=== PATIENT | female | born 1940 | race Caucasian/White ===

== ENCOUNTER 2017-12-16 11:00 | Inpatient (IN) | payer OTHER ==
[2017-12-16] MEDS ORDERED: IPRATROPIUM BROM 0.5MG/2.5ML ONE (11:22)
[2017-12-16] MEDS ORDERED: ALBUTEROL 2.5 MG/3 ML NEB SOL ONE (11:22)
[2017-12-16] MEDS ORDERED: METHYLPREDNISOLONE 125 MG INJ ONE (11:24)
--- NOTE | 2017-12-16 11:30 | RAD REPORT ---
EXAM DESCRIPTION: RAD - Chest Single View - 12/16/2017 11:22 am CLINICAL HISTORY: Respiratory distress, intubation COMPARISON: November 20 chest film, November 20 CT chest TECHNIQUE: AP portable chest image was obtained in supine positioning 1113 hours . FINDINGS: Endotracheal tube is T4 level approximately 2 cm above the stacy. Resuscitation paddles o verlie the lower right chest and left upper abdomen. Patient is rotated. No significant left lung fie ld finding. Left base opacification is present. This could be infectious or aspiration pneumonia. Ple ural effusion with atelectasis could be present as well. Heart size is prominent, accentuated by the patient rotation and supine positioning. Significant terence lure is doubtful. No pneumothorax. No gross bony abnormality seen. No acute aortic findings suspected . IMPRESSION: Endotracheal tube in good position mid aortic arch 2 cm above the stacy. Right base opacification obscuring the right heart border and right hemidiaphragm. This is likely inf ectious or aspiration pneumonia. Pleural fluid and atelectasis can contribute to this appearance as w yann.
[2017-12-16 11:32] LABS: Absolute Lymphocytes (CBC) 0.3 K/uL (0.7-4.9); Absolute Monocytes 0.7 K/uL (0.1-1.3); Absolute Neutrophil 9.9 K/uL (1.8-8.0); Basophils % 0.2 % (0-1.3); Eosinophils % 0.1 % (0-4.4); Hematocrit 36.1 % (36.0-45.0); Lymphocytes % 2.5 % (15.3-44.8); MCH 25.6 pg (27.0-35.0); MCV 85.2 fL (80-100); MPV 8.2 fL (7.6-11.3); Monocytes % 6.7 % (3.3-12.3); RBC Red Blood Cell Count 4.24 M/uL (3.86-4.86)
[2017-12-16 11:36] LABS: Protime INR 0.97
[2017-12-16 11:43] LABS: Potassium 4.8 mEq/L (3.6-5.0)
--- NOTE | 2017-12-16 11:48 | RAD REPORT ---
EXAM DESCRIPTION: CT - Head Brain Wo Cont - 12/16/2017 11:37 am CLINICAL HISTORY: Altered consciousness. COMPARISON: 01/31/2013 TECHNIQUE: All CT scans are performed using dose optimization technique as appropriate and may inclu de automated exposure control or mA/KV adjustment according to patient size. FINDINGS: No intracranial hemorrhage, hydrocephalus or extra-axial fluid collection.No areas of brai n edema or evidence of midline shift. Fluid is noted in the right mastoid air cell and right maxillary sinus. Nasogastric tube is identifie d but appears coiled in the mouth. The calvarium is intact. IMPRESSION: No acute intracranial abnormality.
[2017-12-16 11:49] LABS: Albumin 2.9 g/dL (3.2-5.5); Bilirubin Direct 0.1 mg/dL (0-0.2); Bilirubin Total 0.5 mg/dL (0.3-1.2)
--- NOTE | 2017-12-16 11:51 | RAD REPORT ---
EXAM DESCRIPTION: CT - Thorax Wo Con CLINICAL HISTORY: Respiratory distress. COMPARISON: 11/20/2017 FINDINGS: Large area of airspace consolidation involves the majority of the right lung with signific ant volume loss also seen. The right lower lobe bronchus appears occluded. The findings are likely a combination of pneumonia and atelectasis. Small right pleural effusion is present. Minimal left pleur al fluid. The left lung is emphysematous. The tip of the endotracheal tube is above the stacy. No concerning bony finding. No gross upper abdominal finding. All CT scans are performed using dose optimization technique as appropriate and may include automated exposure control or mA/KV adjustment according to patient size. IMPRESSION: Large area of airspace opacification in the inferior right lung likely is a combination of atelectasis and pneumonia. Findings appear progressive since the comparative study. There is signi ficant endobronchial material within the right lower lobe bronchus presumably aspirated or related to mucous plugging. ET tube tip is above the stacy.
[2017-12-16 12:01] LABS: Blood Morphology Comment NOT SEEN (NOT SEEN); Platelet Estimate ADEQ; Urine White Blood Cell Casts OK
[2017-12-16] MEDS ORDERED: PIPER/TAZO/NS 3.375gm 3.375 GM/100 ML BAG IV ONE (12:15)
[2017-12-16] MEDS ORDERED: NA CHLORIDE 0.9% 2,000 ML ONE (12:23)
[2017-12-16] MEDS ORDERED: PIPER/TAZO/NS 3.375gm 0 GM/0 ML BAG ONE (12:23)
[2017-12-16] MEDS ORDERED: VANCOMYCIN/NS 1 gm 1 GM/250 ML BAG ONE (12:23)
[2017-12-16] MEDS ORDERED: CLINDAMYCIN 600MG/D5W 600 MG/50 ML BAG IV ONE (12:23)
--- NOTE | 2017-12-16 12:30 | RAD REPORT ---
EXAM DESCRIPTION: RAD - Chest Single View - 12/16/2017 12:13 pm CLINICAL HISTORY: Enteric tube placement COMPARISON: None. FINDINGS: Portable technique limits examination quality. The enteric tube is seen with its tip in the stomach.
[2017-12-16 12:35] LABS: Urine Blood NEGATIVE (NEG); Urine Glucose NEGATIVE (NEG); Urine Protein TRACE (NEG)
[2017-12-16 12:42] LABS: Urine Bacteria >50 /HPF (<20); Urine Culture Reflex Order REFLEXED; Urine Mucus SLIGHT /HPF (NONE SEEN); Urine RBC <5 /HPF (NONE SEEN)
--- NOTE | 2017-12-16 13:04 | ER ---
Nurse's Notes [facility] Name: Rosa Sarmiento Age: 77 yrs Sex: Female : 1940 Arrival Date: 12/16/2017 Time: 11:04 Bed 3 Private MD: Diagnosis: Urinary tract infection, site not specified;Pneumonia due to other specified bacteria;Acute respiratory failure;Altered mental status, unspecified Presentation: 12/16 10:53 Presenting complaint: EMS states: Family called to PD for a wellfare check since not sv hearing from the pt since 2099 the night before. On EMS arrival pt was found face down in her bed with agonal respirations. Attempted OPA with no gag reflex. Pt intubated on scene size-7.0, 21 at the teeth. Left NGT clamped in place. Pt given Rocuronium 75mg and Ketamine 150 mg before intubation. Pupils 3 and sluggish. NS 1L bolus given. Pt was recently hospitalized with pneumonia. Transition of care: patient was not received from another setting of care. Onset of symptoms was December 16, 2017. Care prior to arrival: Oral intubation, IV initiated. 20 GA, in the right forearm, Oxygen administered. via AMBU bag. 10:53 Method Of Arrival: EMS: [facility] sv 10:53 Acuity: AMBAR 1 sv Triage Assessment: 11:00 General: Appears well developed, Behavior is unresponsive. Pain: Unable to use pain sv scale. Patient is intubated. EENT: No signs and/or symptoms were reported regarding the EENT system. Neuro: Level of Consciousness is unresponsive, Pt intubated. Oriented to none Pupils are sluggish, size 3 and reactive to light. Cardiovascular: Pulses are 3+ in right radial artery and left radial artery. Respiratory: Respiratory effort is even, unlabored, Respiratory pattern is regular, symmetrical, Breath sounds are clear in left upper lobe and left lower lobe Breath sounds are coarse in right upper lobe, right middle lobe and right lower lobe. GI: Abdomen is round NGT in place, clamped. Site clean. to the left nare Abd is soft X 4 quads. : No signs and/or symptoms were reported regarding the genitourinary system. Derm: Skin is normal, Skin temperature is cool. Historical: - Allergies: 13:14 dergesic patches; sv 13:14 Methadone; sv - PMHx: 13:14 Cancer; Chronic pain; COPD; Emphysema; High Cholesterol; Hypertension; sv - PSHx: 13:14 Tubal ligation; sv - Immunization history:: Adult Immunizations unknown. - Social history:: Smoking status: unknown. Screenin:12 Abuse screen: Denies threats or abuse. Denies injuries from another. Nutritional sv screening: No deficits noted. Tuberculosis screening: No symptoms or risk factors identified. Fall Risk No fall in past 12 months (0 pts). Secondary diagnosis (15 points) impaired mobility, IV access (20 points). Ambulatory Aid- None/Bed Rest/Nurse Assist (0 pts). Gait- Normal/Bed Rest/Wheelchair (0 pts) Mental Status- Oriented to own ability (0 pts). Total Peter Fall Scale indicates Low Risk Score (25-44 pts). Fall prevention measures have been instituted. Side Rails Up X 2 Placed close to Nursing Station Frequent Obs/Assesments occuring Family Present and informed to notify staff if they need to leave bedside As available Patient and Family Educated on Fall Prevention Program and strategies. Assessment: 11:45 Reassessment: Patient appears in no apparent distress at this time. Pt remains sv intubated, no signs of distress noted. 12:45 Reassessment: Pt remains intubated. After central line placed, pt started moving her sv legs slightly. I asked pt to squeeze my hand and was able to squeeze. Pt asked to open her eyes and she opened her eyes. Informed pt that she was in the emergency room and what brought her here. 13:20 Reassessment: Dr Carreno at bedside. sv 13:20 Reassessment: Patient appears in no apparent distress at this time. Pt starting to move sv around. Pt remains intubated. 14:25 Reassessment: Patient appears in no apparent distress at this time. Pt remains sv intubated with family at the bedside. Vital Signs: 11:04 BP 124 / 61; Pulse 81; Resp 20; Pulse Ox 100% on ETT vent; sv 11:45 BP 131 / 58; Pulse 73; Resp 16; Temp 96.8(C); Pulse Ox 100% on 100% FiO2 ETT vent; sv 12:00 BP 119 / 54; Pulse 70; Resp 16; Pulse Ox 99% on 100% FiO2 ETT vent; sv 12:02 Weight 81.65 kg; sv 12:15 BP 126 / 61; Pulse 68; Resp 14; Pulse Ox 98% on ETT vent; sv 12:30 BP 143 / 59; Pulse 81; Resp 20; Temp 96.4(C); Pulse Ox 97% on ETT vent; sv 12:45 BP 128 / 63; Pulse 82; Resp 16; Pulse Ox 95% on ETT vent; sv 13:00 BP 118 / 41; Pulse 78; Resp 17; Pulse Ox 92% on 50% FiO2 ETT vent; sv 13:15 BP 147 / 45; Pulse 78; Resp 17; Temp 95.9(C); Pulse Ox 94% on 50% FiO2 ETT vent; sv 13:30 BP 112 / 55; Pulse 75; Resp 13; Pulse Ox 94% on 50% FiO2 ETT vent; sv 13:45 BP 114 / 48; Pulse 77; Resp 18; Pulse Ox 96% on 50% FiO2 ETT vent; sv 13:58 BP 95 / 85; Pulse 80; Resp 15; Pulse Ox 90% on 50% FiO2 ETT vent; sv 14:00 BP 113 / 62; Pulse 79; Resp 16; Temp 96.8(C); Pulse Ox 95% on 50% FiO2 ETT vent; sv ED Course: 10:53 Maintain EMS IV. Dressing intact. Good blood return noted. Site clean \T\ dry. Gauge \T\ sv site: 20G R FA. 11:00 Arm band placed on left wrist. sv 11:04 Patient arrived in ED. jr8 11:04 [facility]. jr8 11:04 Fidencio Stevens MD is Attending Physician. jr8 11:20 Patient has correct armband on for positive identification. Placed in gown. Bed in low sv position. Call light in reach. Side rails up X2. asp developer on. Pulse ox on. NIBP on. Warm blanket given. Head of bed elevated. 11:21 X-ray completed. PT INTUBATED. kw1 11:22 Chest Single View XRAY In Process Unspecified. EDMS 11:30 Patient moved back from CT. sv 11:38 CT Head Brain wo Cont In Process Unspecified. EDMS 11:38 Thorax Wo Con In Process Unspecified. EDMS 11:45 NGT: inserted 16 Fr. other oral verified placement of air over stomach, Placement sv verified by X-ray, to intermittent suction. Patient tolerated well. 12:08 X-ray completed. Portable x-ray completed in exam room. pt intubated, x ray for n g sw tube placement. 12:09 XRAY Chest (1 view) In Process Unspecified. EDMS 12:21 Kathryn Duenas RN is Primary Nurse. sv 12:30 Assisted provider with central line placement. Set up central line tray. Triple lumen sv line placed in right femoral. Line placed by Mark PUENTES Placement verified by blood return, Dressed with Tegaderm, Blood was collected. Patient tolerated well. Before procedure, did Practitioner(s) obtain informed consent? No. Patient \T\ family education about procedure, CLABSI prevention and S/S of infection? No. Time-out/Briefing performed prior to start of procedure? Yes. Was handwashing/sanitizing done immediately prior to procedure? Yes. Was patient positioned to in a way to prevent air embolism? Yes. Was procedure site sterilized? Yes, with chlorhexidine. Was the site allowed to dry? Yes. Was local anesthetic and/or sedation utilized? Yes. During the procedure, did the Practitioner(s) maintain a sterile field? Yes. Were unused ports clamped during insertion? Yes. Was a 2nd qualified MD obtained after 3 unsuccessful insertion attempts? Yes. Was blood aspirated from each lumen? Yes. After the procedure, did the Practitioner(s) clean the site and apply a sterile dressing? Yes. 13:03 Lu Ayala MD is Hospitalizing Provider. [email or web address] [[email or web address]] 13:09 Triage completed. sv 14:30 Patient admitted, IV remains in place. intact. sv Administered Medications: 12:22 Drug: NS 0.9% (30 ml/kg) 30 ml/kg Route: IV; Rate: bolus; Site: right forearm; sv 13:30 Follow up: Response: No adverse reaction; IV Status: Completed infusion; IV Intake: sv 2500ml 12:58 Drug: vancoMYCIN 1 grams Route: IVPB; Infused Over: 2 hrs; Site: right femoral; sv 14:30 Follow up: Response: No adverse reaction; IV Status: Infusion continued upon admission sv 12:58 Drug: Clindamycin 600 mg Route: IVPB; Infused Over: 30 mins; Site: right femoral; sv 13:27 Follow up: Response: No adverse reaction; IV Status: Completed infusion; IV Intake: 50mlsv 12:58 Drug: Versed 2 mg Route: IVP; Site: right femoral; sv 13:20 Follow up: Response: No adverse reaction; No change in condition sv 13:22 Drug: Versed 2 mg Route: IVP; Site: right femoral; sv 13:30 Follow up: Response: No adverse reaction sv 13:25 Drug: fentaNYL (PF) 75 mcg Route: IVP; Site: right femoral; sv 13:30 Follow up: Response: No adverse reaction sv 13:27 Drug: Zosyn 3.375 grams Route: IVPB; Infused Over: 60 mins; Site: right femoral; sv 14:00 Follow up: Response: No adverse reaction; IV Status: Completed infusion; IV Intake: 50mlsv 13:52 Drug: Propofol 5 mcg/kg/min Route: IV; Rate: calculated rate; Site: right femoral; sv 13:59 Follow up: Response: No adverse reaction; Blood pressure is lowered; IV Status: Order sv to discontinue infusion Point of Care Testing: Blood Glucose: 11:14 Blood Glucose: 129 mg/dL; sv Ranges: Intake: 13:27 IV: 50ml; Total: 50ml. sv 13:30 IV: 2500ml; Total: 2550ml. sv 14:00 IV: 50ml; Total: 2600ml. sv Ventilator: 11:45 Fi02: 100%; Rate: 16min; T.V.: 450ml; Peep: 5cm; Mode: CMV; sv 13:00 Fi02: 50%; Rate: 14min; T.V.: 500ml; Peep: 5cm; Mode: CMV; sv Outcome: 13:04 Decision to Hospitalize by Provider. princess 14:15 Admitted to ICU accompanied by nurse, accompanied by tech, via stretcher, room 1, with sv oxygen, on monitor, with chart, Report called to Landy GOINS 14:15 Condition: stable 14:15 Instructed on the need for admit. 14:31 Patient left the ED. bd Signatures: Dispatcher [employer] EDMS Brooklyn Mixon Stephanie, RN RN sv Mark Tran PA PA jr8 Liz Ferrara Kimberly kw1 Corrections: (The following items were deleted from the chart) 17:14 11:45 BP 131 / 58; Pulse 73bpm; Resp 16bpm; Pulse Ox 100% ET / Ventilator; Temp 96.8F sv Catheter; sv 17:14 12:00 BP 119 / 54; Pulse 70bpm; Resp 16bpm; Pulse Ox 99% ET / Ventilator; sv sv 17:16 13:00 BP 118 / 41; Pulse 78bpm; Resp 17bpm; Pulse Ox 92% ET / Ventilator; sv sv 17:16 13:15 BP 147 / 45; Pulse 78bpm; Resp 17bpm; Pulse Ox 94% ET / Ventilator; Temp 95.9F sv Catheter; sv 17:16 13:30 BP 112 / 55; Pulse 75bpm; Resp 13bpm; Pulse Ox 94% ET / Ventilator; sv sv 17:16 13:45 BP 114 / 48; Pulse 77bpm; Resp 18bpm; Pulse Ox 96% ET / Ventilator; sv sv
--- NOTE | 2017-12-16 13:04 | EDPHYS ---
Physician Documentation [facility] Name: Rosa Sarmiento Age: 77 yrs Sex: Female : 1940 Arrival Date: 12/16/2017 Time: 11:04 Bed 3 Private MD: ED Physician Fidencio Stevens HPI: 12/16 12:54 This 77 yrs old Female presents to ER via Unassigned with complaints of AMS. jr8 Respiratory Failure. 12:54 Onset: The symptoms/episode began/occurred acutely, today. Severity of symptoms: At jr8 their worst the symptoms were severe in the emergency department the symptoms are unchanged. The patient has not experienced similar symptoms in the past. The patient has not recently seen a physician. Family stated that patient last known well was last night around 9 pm. Stated that she had doctors appointment this AM. Had called to check on her to make sure she was getting ready but had no answer. Went to house and knocked with no response. Police called at that time. Patient was found to be prone in bed, unresponsive, with agonal respirations. EMS intubated in field. Original saturation was 76%. No neurological response on seen . Historical: - Allergies: 13:14 dergesic patches; sv 13:14 Methadone; sv - PMHx: 13:14 Cancer; Chronic pain; COPD; Emphysema; High Cholesterol; Hypertension; sv - PSHx: 13:14 Tubal ligation; sv - Immunization history:: Adult Immunizations unknown. - Social history:: Smoking status: unknown. ROS: 12:54 Unable to obtain ROS due to altered mental status, patient is on ventilator. jr8 Exam: 12:54 Head/Face: Normocephalic, atraumatic. Eyes: Pupils equal round and reactive to light. jr8 Slightly sluggish pupilary response noted. Lids and lashes normal. Conjunctiva and sclera are non-icteric and not injected. Cornea within normal limits. Periorbital areas with mild edema noted ENT: Nares patent. No nasal discharge, no septal abnormalities noted. Tympanic membranes are normal and external auditory canals are clear. Oropharynx with no redness, swelling, or masses, exudates, or evidence of obstruction, uvula midline. Mucous membranes moist. Neck: Trachea midline, no thyromegaly or masses palpated, and no cervical lymphadenopathy. Supple Cardiovascular: Regular rate and rhythm with a normal S1 and S2. No gallops, murmurs, or rubs. Normal PMI, no JVD. No pulse deficits. Respiratory: Patient on ventilator at rate of 14. Equal chest rise and fall. Breath sounds present but with wheezing and diminished sounds auscultated on right side. Left side clear to auscultation. Abdomen/GI: Soft with normal bowel sounds. No distension Skin: Warm, dry with normal turgor. Normal color with no rashes, no lesions, and no evidence of cellulitis. MS/ Extremity: Pulses equal, no cyanosis. 12:54 Neuro: Patient intubated with GCS of 3T. No purposeful movement noted at this time. Decreased reflexes present . Vital Signs: 11:04 BP 124 / 61; Pulse 81; Resp 20; Pulse Ox 100% on ETT vent; sv 11:45 BP 131 / 58; Pulse 73; Resp 16; Temp 96.8(C); Pulse Ox 100% on 100% FiO2 ETT vent; sv 12:00 BP 119 / 54; Pulse 70; Resp 16; Pulse Ox 99% on 100% FiO2 ETT vent; sv 12:02 Weight 81.65 kg; sv 12:15 BP 126 / 61; Pulse 68; Resp 14; Pulse Ox 98% on ETT vent; sv 12:30 BP 143 / 59; Pulse 81; Resp 20; Temp 96.4(C); Pulse Ox 97% on ETT vent; sv 12:45 BP 128 / 63; Pulse 82; Resp 16; Pulse Ox 95% on ETT vent; sv 13:00 BP 118 / 41; Pulse 78; Resp 17; Pulse Ox 92% on 50% FiO2 ETT vent; sv 13:15 BP 147 / 45; Pulse 78; Resp 17; Temp 95.9(C); Pulse Ox 94% on 50% FiO2 ETT vent; sv 13:30 BP 112 / 55; Pulse 75; Resp 13; Pulse Ox 94% on 50% FiO2 ETT vent; sv 13:45 BP 114 / 48; Pulse 77; Resp 18; Pulse Ox 96% on 50% FiO2 ETT vent; sv 13:58 BP 95 / 85; Pulse 80; Resp 15; Pulse Ox 90% on 50% FiO2 ETT vent; sv 14:00 BP 113 / 62; Pulse 79; Resp 16; Temp 96.8(C); Pulse Ox 95% on 50% FiO2 ETT vent; sv Ventilator: 11:45 Fi02: 100%; Rate: 16min; T.V.: 450ml; Peep: 5cm; Mode: CMV; sv 13:00 Fi02: 50%; Rate: 14min; T.V.: 500ml; Peep: 5cm; Mode: CMV; sv Procedures: 12:54 Central Line: the site was prepped with Betadine, in sterile fashion, a triple lumen jr8 catheter was inserted, in the right femoral vein, in 1 attempts. placement was verified, by blood return, the site was dressed with 4X4s, Tegaderm, foam tape, using sterile technique, the patient tolerated the procedure, well. MDM: 11:04 Patient medically screened. jr8 12:54 Data reviewed: vital signs, nurses notes, lab test result(s), EKG, radiologic studies, jr8 CT scan, plain films. Counseling: I had a detailed discussion with the patient and/or guardian regarding: the historical points, exam findings, and any diagnostic results supporting the discharge/admit diagnosis, lab results, radiology results, the need for further work-up and treatment in the hospital. ED course: Patient started to have some movement and response to verbal stimulus. Could close fist and open eyes when asked. . 12/16 11:05 Order name: Urine Microscopic Only; Complete Time: 12:49 12/16 11:05 Order name: Basic Metabolic Panel; Complete Time: 11:59 12/16 11:05 Order name: Blood Culture Adult (2) 12/16 11:05 Order name: BNP; Complete Time: 11:59 12/16 11:05 Order name: CBC with Diff; Complete Time: 12:08 12/16 11:05 Order name: CPK; Complete Time: 11:59 12/16 11:05 Order name: Lactate; Complete Time: 11:46 12/16 11:05 Order name: LFT's; Complete Time: 11:59 12/16 11:05 Order name: Lipase; Complete Time: 11:59 12/16 11:05 Order name: Procalcitonin; Complete Time: 11:59 12/16 11:05 Order name: Protime (+inr); Complete Time: 11:44 [facility] 12/16 11:05 Order name: Ptt, Activated; Complete Time: 11:44 [facility] 12/16 11:05 Order name: Troponin (emerg Dept Use Only); Complete Time: 11:47 [facility] 12/16 11:09 Order name: UDS; Complete Time: 13:22 [facility] 12/16 11:05 Order name: Chest Single View XRAY; Complete Time: 11:44 [facility] 12/16 11:05 Order name: CT Head Brain wo Cont; Complete Time: 11:59 [facility] 12/16 11:35 Order name: CBC Smear Scan; Complete Time: 12:08 [facility] 12/16 12:29 Order name: Urine Dipstick--Ancillary (enter results); Complete Time: 12:49 12/16 12:43 Order name: Urine Culture [facility] 12/16 12:50 Order name: ABG 12/16 13:36 Order name: Sputum Culture [facility] 12/16 13:36 Order name: CBC with Automated Diff EDAK 12/16 13:36 Order name: CBC with Automated Diff EDMS 12/16 13:36 Order name: CBC with Automated Diff EDMS 12/16 13:36 Order name: Comprehensive Metabolic Panel [facility] 12/16 13:36 Order name: Comprehensive Metabolic Panel [facility] 12/16 13:36 Order name: Comprehensive Metabolic Panel [facility] 12/16 13:36 Order name: Comprehensive Metabolic Panel [facility] 12/16 13:36 Order name: CBC with Automated Diff MS 12/16 13:38 Order name: Sputum Gram Stain [facility] 12/16 11:05 Order name: Accucheck; Complete Time: 12:22 [facility] 12/16 11:05 Order name: Cardiac monitoring; Complete Time: 12:22 [facility] 12/16 11:05 Order name: EKG - Nurse/Tech [facility] 12/16 11:05 Order name: IV Saline Lock - Large Bore; Complete Time: 12:23 [facility] 12/16 11:05 Order name: Labs collected and sent [facility] 12/16 11:05 Order name: O2 Per Protocol [facility] 12/16 11:05 Order name: O2 Sat Monitoring; Complete Time: 12:22 [facility] 12/16 11:05 Order name: Urine Dipstick-Ancillary (obtain specimen); Complete Time: 12:22 [facility] 12/16 11:06 Order name: Butler; Complete Time: 12:22 jr8 12/16 11:06 Order name: Glucose Level; Complete Time: 12:22 8 12/16 11:37 Order name: Thorax Wo Con; Complete Time: 11:59 EDMS 12/16 12:00 Order name: XRAY Chest (1 view); Complete Time: 12:49 jr8 12/16 13:34 Order name: CONS Physician Consult EDMS 12/16 13:36 Order name: CONS Physician Consult EDMS 12/16 13:36 Order name: NPO EDMS 12/16 13:36 Order name: CONS Pharmacy Consult EDMS Administered Medications: 12:22 Drug: NS 0.9% (30 ml/kg) 30 ml/kg Route: IV; Rate: bolus; Site: right forearm; sv 13:30 Follow up: Response: No adverse reaction; IV Status: Completed infusion; IV Intake: sv 2500ml 12:58 Drug: vancoMYCIN 1 grams Route: IVPB; Infused Over: 2 hrs; Site: right femoral; sv 14:30 Follow up: Response: No adverse reaction; IV Status: Infusion continued upon admission sv 12:58 Drug: Clindamycin 600 mg Route: IVPB; Infused Over: 30 mins; Site: right femoral; sv 13:27 Follow up: Response: No adverse reaction; IV Status: Completed infusion; IV Intake: 50mlsv 12:58 Drug: Versed 2 mg Route: IVP; Site: right femoral; sv 13:20 Follow up: Response: No adverse reaction; No change in condition sv 13:22 Drug: Versed 2 mg Route: IVP; Site: right femoral; sv 13:30 Follow up: Response: No adverse reaction sv 13:25 Drug: fentaNYL (PF) 75 mcg Route: IVP; Site: right femoral; sv 13:30 Follow up: Response: No adverse reaction sv 13:27 Drug: Zosyn 3.375 grams Route: IVPB; Infused Over: 60 mins; Site: right femoral; sv 14:00 Follow up: Response: No adverse reaction; IV Status: Completed infusion; IV Intake: 50mlsv 13:52 Drug: Propofol 5 mcg/kg/min Route: IV; Rate: calculated rate; Site: right femoral; sv 13:59 Follow up: Response: No adverse reaction; Blood pressure is lowered; IV Status: Order sv to discontinue infusion Point of Care Testing: Blood Glucose: 11:14 Blood Glucose: 129 mg/dL; sv Ranges: Critical Glucose Levels:Adult <50 mg/dl or >400 mg/dl <40 mg/dl or >180 mg/dl Disposition: 14:47 Co-signature as Attending Physician, Fidencio Stevens MD. Disposition: 12/16/17 13:04 Hospitalization ordered by Lu Ayala for Inpatient Admission. Preliminary diagnosis are Urinary tract infection, site not specified, Pneumonia due to other specified bacteria, Acute respiratory failure, Altered mental status, unspecified. - Bed requested for Intensive Care Unit. - Status is Inpatient Admission. bd - Condition is Fair. - Problem is new. - Symptoms have improved. UTI on Admission? Yes Signatures: Dispatcher [employer] EDMS Brooklyn Mixon Stephanie, RN Rose Lawton RN RN dw Roszak, Josh, PA PA jr8 Fidencio Stevens MD MD Corrections: (The following items were deleted from the chart) 11:37 11:25 Thorax W/ Con+CT.RAD.BRZ ordered. EDMS EDMS
[2017-12-16] MEDS ORDERED: MIDAZOLAM HCL 2 MG/2 ML INJ ONE ×2 (13:08→13:40)
[2017-12-16 13:19] LABS: Barbiturates NEGATIVE; Benzodiazepines NEGATIVE; Cocaine NEGATIVE; METHAMPHETAM NEGATIVE; Opiates POSITIVE; Phencyclidine NEGATIVE; THC Cannibis NEGATIVE
[2017-12-16] MEDS ORDERED: ONDANSETRON 4 MG/2 ML VIAL IV PRN (13:29)
[2017-12-16] MEDS ORDERED: ACETAMINOPHEN 650MG/RECT SUPP PR PRN (13:29)
--- NOTE | 2017-12-16 13:31 | P.CNS ---
Date of Consult: 12/16/17 Reason for Consult: Respiratory failure Chief Complaint: Respiratory failure, pneumonia History of Present Illness: Patient is 77 years of age well known to me she has a history of a COPD was found unresponsive by the daughter foaming at the mouth was intubated transferred here to the ICU according to the daughter she is fine yesterday she talked to her patient is usually very coherent and is not prone to taking overdoses of medication patient was found to have a large consolidation in the right lung she is responsive and cooperative according to the nurse Allergies fentanyl [From Duragesic] Allergy (Mild, Verified 11/20/17 21:42) Itching methadone [Methadone] Allergy (Mild, Verified 11/20/17 21:42) Itching Home Medications: Amitriptyline HCl 50 mg PO BID 02/26/14 Furosemide [Lasix*] 40 mg PO DAILY 02/26/14 Potassium Chloride [Micro-K] 10 meq PO BID 02/26/14 Duloxetine HCl [Cymbalta] 60 mg PO DAILY 12/14/14 Esomeprazole Magnesium [Nexium] 40 mg PO DAILY 12/14/14 Albuterol Inhaler [Ventolin Inhaler*] 2 puff IH Q8H PRN 02/12/17 Gabapentin 800 mg PO TID 02/13/17 Atorvastatin Calcium [Lipitor*] 20 mg PO BEDTIME #0 tab 02/14/17 Alprazolam 0.5 mg PO BID 11/20/17 Aspirin [Aspir-Low] 81 mg PO DAILY 11/20/17 Duloxetine HCl [Cymbalta] 60 mg PO DAILY 11/20/17 Fluticasone/Salmeterol [Advair 250-50 Diskus] 1 each IH DAILY 11/20/17 Hydrocodone/Acetaminophen [[place] 5-325 Tablet] 1 each PO Q6H PRN 11/20/17 Tiotropium [place] [Spiriva] 2.5 mcg IH DAILY 11/20/17 Amlodipine Besylate [Norvasc] 10 mg PO DAILY #30 tablet 11/21/17 Levofloxacin [Levaquin] 500 mg PO DAILY #14 tab 11/21/17 Prednisone [Prednisone*] 40 mg PO [id number] #20 tab 11/21/17 - Past Medical/Surgical History Diabetic: No -: COPD, oxygen-dependent -: DDD,DJD of the spine. -: LARYNGEAL CANCER -: GERD -: Chronic back pain -: Hyperlipidemia -: Chronic back pain -: Allergic rhinitis -: Edema -: Mediastinal lymphadenopathy -: Former smoker -: back surgerys x2 rods in back -: Psychosocial/ Personal History: She lives by herself. She has home health and a caregiver. - Family History Mother Medical History: Heart disease, Hypertension Notes: pt has caregiver at home;pt lives alone. - Social History Smoking Status: Former smoker Alcohol use: No CD- Drugs: No Caffeine use: Yes Review of Systems is unable to be obtained Physical Examination General: Other (The responsive on a vent) Respiratory: Crackles/rales (Crackles on on the right side) Cardiovascular: No edema, Regular rate/rhythm Gastrointestinal: Normal bowel sounds, Soft and benign Musculoskeletal: No clubbing Integumentary: No rashes, No breakdown Laboratory Data (last 24 hrs) 12/16/17 11:05: PT 11.4, INR 0.97, APTT 26.9 12/16/17 11:05: WBC 11.0 H, Hgb 10.8 L, Hct 36.1, Plt Count 205 12/16/17 11:05: B-Natriuretic Peptide 135 H 12/16/17 11:05: Sodium 141, Potassium 4.8, BUN 13, Creatinine 0.97, Glucose 136 H, Total Bilirubin 0.5, AST 13, ALT 6 L, Alkaline Phosphatase 84, Lipase 25 - Problems (1) Respiratory failure Current Visit: Yes Status: Acute Plan: Patient is 77 years of age admitted with acute respiratory failure unresponsive she has a right lower lobe consolidation very impressive on the CT scan chemistries reviewed patient is mild microcytic anemia patient will need broad- spectrum antibiotics blood cultures bronchodilators labs medications all reviewed Qualifiers: Chronicity: acute on chronic
[2017-12-16] MEDS ORDERED: Pharmacy Consult 1 EA XX PRN (13:35)
[2017-12-16] MEDS ORDERED: IPRATROPIUM BROM 0.5MG/2.5ML NEB PRN (13:39)
[2017-12-16] MEDS ORDERED: FENTANYL CITR 100 MCG/2 ML ONE (13:41)
[2017-12-16] MEDS: D5 0.45 NS 1,000 ML IV SCH ×2 (14:00→18:01)
[2017-12-16] MEDS ORDERED: IPRATROPIUM BROM 0.5MG/2.5ML NEB SCH ×2 (14:00→16:00)
[2017-12-16] MEDS: ALBUTEROL 2.5 MG/3 ML NEB SOL NEB SCH ×2 (14:00→19:44)
[2017-12-16] MEDS ORDERED: PROPOFOL 1,000 MG/100 ML VIAL IV ONE (14:06)
[2017-12-16] MEDS ORDERED: VANCOMYCIN/NS 1 gm 1 GM/250 ML BAG IV SCH (15:00)
[2017-12-16] MEDS: ENOXAPARIN 40 MG/0.4 ML SQ SCH (15:43)
[2017-12-16 16:39] LABS: Arterial Blood Carboxyhemoglob 1.3 % (0-1.5); Blood Gas Oxyhemoglobin 97.8 % (94-97); Blood O2 Saturation 99.5 % (92-98.5)
[2017-12-16] MEDS: PIPER/TAZO/NS 3.375gm 3.375 GM/100 ML BAG IVPB SCH (18:01)
[2017-12-16 18:25] LABS: Arterial Blood Carboxyhemoglob 1.6 % (0-1.5); Blood Gas Oxyhemoglobin 87.3 % (94-97); Blood O2 Saturation 90.4 % (92-98.5)
[2017-12-16] MEDS ORDERED: LORazepam 2 MG/ML VIAL IV PRN (20:13)
[2017-12-16] MEDS ORDERED: MIDAZOLAM HCL 2 MG/2 ML INJ IV PRN (20:13)
[2017-12-16] MEDS ORDERED: VANCOMYCIN 1.25 GM in NA CHLORIDE 0.9% 250 ML IV SCH (21:00)
[2017-12-16] MEDS: MORPHINE 4 MG/ML SYR IV PRN (21:15)
[2017-12-16] MEDS: FAMOTIDINE 20 MG/2 ML VIAL IV SCH (21:22)
[2017-12-16 22:06] LABS: Arterial Blood Carboxyhemoglob 1.5 % (0-1.5); Blood Gas Oxyhemoglobin 93.5 % (94-97); Blood O2 Saturation 96.8 % (92-98.5)
[2017-12-17] MEDS: PIPER/TAZO/NS 3.375gm 3.375 GM/100 ML BAG IVPB SCH ×3 (01:01→16:49)
[2017-12-17] MEDS: ALBUTEROL 2.5 MG/3 ML NEB SOL NEB SCH ×2 (02:24→08:22)
[2017-12-17] MEDS: MORPHINE 4 MG/ML SYR IV PRN ×3 (02:35→09:58)
--- NOTE | 2017-12-17 03:45 | HP ---
Date of Admission: 12/16/2017 Addendum: Please see the initial dictation for remainder of H and P. Allergies: TO FENTANYL AND METHADONE. Medications: Reviewed. Physical Examination: Vital Signs: Temperature 95.9, heart rate 82, blood pressure 128/62, respirations 16, O2 95% on ET tube. General: Intubated, not sedated. Following commands, elderly female, ill- appearing. HEENT: Pupils equal, round, and reactive. Extraocular movements intact. ET tube in place. Neck: Supple. No JVD. Trachea midline. CV: S1, S2. No murmurs. Regular rate and rhythm. Peripheral pulses are present bilaterally. Respiratory: Diminished breath sounds, right worse than left. No wheezing. No stridor. Gastrointestinal: Abdomen is soft, nontender, nondistended. Positive bowel sounds. No guarding or rigidity. No palpable masses. Extremities: No clubbing, cyanosis, or edema. No calf tenderness. Neuro: No focal neurological deficit. The patient able to move all 4 extremities. Follows commands. The patient is intubated. Skin: No rashes. Normal skin turgor. Psych: Deferred. Laboratory Data: Sodium 141, potassium 4.8, chloride 104, CO2 33, BUN 13, creatinine 0.97, glucose 136, lactic acid 6.7, calcium 8.3. BNP 135. Troponin less than 0.03. Albumin 2.9, lipase 25. Procalcitonin 0.1. INR 0.97. WBC 11 , H and H are 10.8 and 36.1, platelets 205. UDS shows positive for opiates. UA shows positive nitrite, negative leukocyte esterase, 5-10 WBCs, and greater than 50 bacteria. Chest x-ray personally reviewed shows endotracheal tube in good position. Right base opacification obscuring right heart border and right hemidiaphragm, likely infectious or aspiration pneumonia. Pleural fluid and atelectasis can contribute to this appearance as well. CT scan of the head, no acute intracranial abnormality. CT of the chest shows large area of airspace opacification in the inferior right lung likely combination of atelectasis and pneumonia. Findings progressive since comparative study on 11/20/2017, significant endobronchial material within the right lower lobe bronchus, presumably aspirated or related to mucous plugging. Assessment And Plan: A 77-year-old female with; 1. Acute hypercapnic respiratory failure. The patient has been intubated. We will continue with the ventilator, mechanical ventilation. Dr. Carreno is on the case secondary to aspiration pneumonia. 2. Aspiration pneumonia, right-sided consolidation at right lower lobe. We will continue with broad-spectrum IV antibiotics. Obtain blood cultures and sputum cultures. 3. Chronic obstructive pulmonary disease with chronic respiratory failure. The patient is oxygen dependent. We will continue with nebulizer treatments. 4. Degenerative disk disease of the spine. The patient is on chronic narcotics. 5. History of laryngeal cancer. 6. Gastroesophageal reflux disease. PPI. 7. Chronic back pain, midline, without sciatica. 8. Hyperlipidemia. We will resume home medications. Plan: Admit the patient to ICU, place as inpatient. CALVIN Voice ID: [id number] MTDD
[2017-12-17 05:25] LABS: Arterial Blood Carboxyhemoglob 1.9 % (0-1.5); Blood Gas Oxyhemoglobin 89.9 % (94-97); Blood O2 Saturation 92.8 % (92-98.5)
[2017-12-17 05:45] LABS: Absolute Lymphocytes (CBC) 0.1 K/uL (0.7-4.9); Absolute Monocytes 0.6 K/uL (0.1-1.3); Absolute Neutrophil 15.6 K/uL (1.8-8.0); Basophils % 0.4 % (0-1.3); Hematocrit 33.8 % (36.0-45.0); Lymphocytes % 0.9 % (15.3-44.8); MCH 25.4 pg (27.0-35.0); MCV 83.3 fL (80-100); MPV 8.5 fL (7.6-11.3); Monocytes % 3.6 % (3.3-12.3); RBC Red Blood Cell Count 4.06 M/uL (3.86-4.86)
[2017-12-17 06:15] LABS: Albumin 2.3 g/dL (3.2-5.5); Bilirubin Total 0.7 mg/dL (0.3-1.2); Potassium 3.4 mEq/L (3.6-5.0); Protein, Total 4.9 g/dL (6.0-8.3)
--- NOTE | 2017-12-17 07:24 | HP ---
Date of Admission: 12/16/2017 Admitting Diagnosis: Found down, respiratory failure. Code Status: Full. Consultants: Dr. Carreno with Pulmonology. Primary Care Physician: Dr. Nevarez. History Of Present Illness: The patient is a 77-year-old female with past medical history of COPD, hyperlipidemia, chronic pain syndrome on chronic narcotics, degenerative disk disease of the spine, history of laryngeal cancer, GERD, who was found by her daughter unresponsive in the bed. The patient was, of note, treated 3 weeks ago for a pneumonia. The patient was intubated at scene. The patient's symptoms are constant, moderate, and progressively worsening. No fevers, chills, or cough. It should be noted that the history is limited due to the patient's medical condition, largely obtained from ER staff and previous records. The patient's imaging showed a white count of 11, 000. Her imaging studies showed extensive consolidation. The patient was then referred for admission. Past Medical History: COPD, degenerative disk disease of the spine, laryngeal cancer, GERD, hyperlipidemia, chronic back pain, rhinitis, edema, mediastinal lymphadenopathy. Past Surgical History: Back surgery, . Family History: Mother had heart disease, hypertension. Social History: Former smoker. No alcohol use or illicit drug use. Review of Systems: A 10-point review of systems unable to obtained due to the patient's medical condition. PLEASE SEE ADDENDUM TO H&P FOR PHYSICAL EXAM FINDINGS AND ASSESSMENT/PLAN. /WILLIAMS Voice ID: [id number] MTDAndreina
[2017-12-17 07:46] LABS: Blood Morphology Comment NOT SEEN (NOT SEEN); Platelet Estimate ADEQ
--- NOTE | 2017-12-17 08:14 | RAD REPORT ---
EXAM DESCRIPTION: RAD - Chest Single View - 12/17/2017 7:03 am CLINICAL HISTORY: Respiratory failure COMPARISON: December 16 chest film, December 16 CT chest TECHNIQUE: AP portable chest image was obtained 0650 hours . FINDINGS: Lung volumes are relatively low. ET tube and NG tube remain in good position. Lung marking s are accentuated by the low lung volumes. The extensive opacification on the CT chest study has impr abdi. There is improved aeration overall of the lung parenchyma on the right. No progressive failure, infiltrate or acute chest finding. Patchy atelectasis remains. Heart and vasculature are normal. No pneumothorax or large pleural effusion. No gross bony abnormality seen. No acute aortic findings susp ected. IMPRESSION: Low lung volume examination shows mildly prominent interstitial markings. Aeration overa ll appears improved. No progressive cardiopulmonary process. ETT and NG tube in good position.
[2017-12-17] MEDS: KCL 20 MEQ/100 mL IVPB 20 MEQ/100 ML BAG IV SCH ×2 (08:24→10:02)
[2017-12-17] MEDS: FAMOTIDINE 20 MG/2 ML VIAL IV SCH (08:24)
[2017-12-17] MEDS: ENOXAPARIN 40 MG/0.4 ML SQ SCH (08:24)
[2017-12-17] MEDS ORDERED: VANCOMYCIN 1.25 GM in NA CHLORIDE 0.9% 250 ML IVPB SCH (09:00)
[2017-12-17] MEDS: D5 0.45 NS 1,000 ML IV SCH ×2 (10:00)
[2017-12-17] MEDS ORDERED: ALBUTEROL 2.5 MG/3 ML NEB SOL NEB PRN (11:37)
--- NOTE | 2017-12-17 11:39 | P.PN ---
Subjective Date of Service: 12/17/17 Chief Complaint: Respiratory failure, pneumonia Subjective: Improving (Patient is doing well she is alert responsive cooperative wants to be extubated hemodynamically stable) Review of Systems is unable to be obtained Physical Examination - Vital Signs Temperature: 99.6 F Blood Pressure: 121/79 Pulse: 91 Respirations: 12 Pulse Ox (%): 93 - Physical Exam General: Alert, Cooperative Respiratory: Clear to auscultation bilaterally Cardiovascular: No edema, Normal S1 S2 Gastrointestinal: Normal bowel sounds, Soft and benign - Studies Laboratory Data (last 24 hrs) 12/16/17 11:05: PT 11.4, INR 0.97, APTT 26.9 12/16/17 11:05: WBC 11.0 H, Hgb 10.8 L, Hct 36.1, Plt Count 205 12/16/17 11:05: B-Natriuretic Peptide 135 H 12/16/17 11:05: Sodium 141, Potassium 4.8, BUN 13, Creatinine 0.97, Glucose 136 H, Total Bilirubin 0.5, AST 13, ALT 6 L, Alkaline Phosphatase 84, Lipase 25 Assessment & Plan - Problems (Diagnosis) (1) Respiratory failure Current Visit: Yes Status: Acute Plan: Patient is doing well alert oriented responsive hemodynamically stable requiring no oxygen currently on the spontaneous breathing trial cultures so far negative chest x-ray shows some interstitial changes white count mildly elevated ABS reviewed plan to wean and extubate advanced diet Qualifiers: Chronicity: acute on chronic
[2017-12-17] MEDS: METHYLPREDNISOLONE 40 MG INJ IV SCH ×2 (12:54→16:49)
[2017-12-17] MEDS: IPRATROPIUM BROM 0.5MG/2.5ML NEB SCH ×2 (13:39→19:51)
[2017-12-17] MEDS: GABAPENTIN 400 MG CAP PO SCH ×3 (14:00→21:00)
[2017-12-17] MEDS ORDERED: VANCOMYCIN 1.5 GM in NA CHLORIDE 0.9% 500 ML IVPB SCH (15:00)
--- NOTE | 2017-12-17 15:09 | PN ---
Date of Progress Note: 12/17/2017 The patient seen and examined. Chart reviewed and case discussed with RN. History: The patient is still intubated, however, following commands and will likely be extubated later this afternoon. No acute events overnight. Review of Systems: Negative except as above. Medications: Reviewed. Physical Examination: Vital Signs: Temperature 99.6, heart rate 96, blood pressure 137/53, respirations 12, O2 saturation 96% on mechanical ventilation. General: Awake, alert, intubated, in no acute distress, elderly female. CV: S1, S2. No murmurs. Peripheral pulses present bilaterally. Respiratory: Diminished breath sounds, right worse than left. No crackles. Some rhonchi heard. Gastrointestinal: Abdomen is soft, nontender, nondistended. Positive bowel sounds. Extremities: No clubbing, cyanosis, or edema. Neurologic: Nonfocal. Laboratory Data: Sodium 143, potassium 3.4, chloride 110, CO2 29, BUN 10, creatinine 0.64, glucose 113, calcium 8.5, magnesium 2. ABG; pH 7.41, pCO2 is 45, PO2 62, bicarb 27. WBC 16.4, H and H 10.3, 33.8, platelets 217, neutrophils 95. Blood cultures pending. Sputum culture is pending. Urine culture shows 4+ gram-negative rods. Chest x-ray, personally reviewed, shows mildly prominent interstitial markings. Aeration overall appears improved. Assessment And Plan: A 77-year-old female with: 1. Acute hypercapnic respiratory failure. We will continue with mechanical ventilation. Continue weaning trials and extubate. Appreciate Dr. Carreno's input secondary to aspiration pneumonia. 2. Aspiration pneumonia. Right-sided consolidation in the right lower lobe. Continue IV antibiotics. Follow up on cultures. 3. Chronic obstructive pulmonary disease with chronic respiratory failure. Patient uses oxygen at home. We will continue nebulizer treatments. 4. Degenerative disk disease of spine. The patient is narcotic dependent. 5. History of laryngeal cancer. 6. Gastroesophageal reflux disease, PPI. 7. Chronic back pain, midline without sciatica. 8. Hyperlipidemia, statin. 9. UTI: Cont IV Abx Plan: Anticipate extubation later today. Resume home medications, once able to tolerate p.o. SA/MODL Voice ID: [id number] Report ID: [id number] MTDD
[2017-12-17] MEDS ORDERED: KCL 20 MEQ/100 mL IVPB 20 MEQ/100 ML BAG IV SCH (19:00)
[2017-12-17] MEDS: AMITRIPTYLINE 50 MG TAB PO SCH (21:00)
[2017-12-17] MEDS: ATORVASTATIN 20 MG TAB PO SCH (21:00)
[2017-12-18] MEDS: IPRATROPIUM BROM 0.5MG/2.5ML NEB SCH ×4 (01:12→19:17)
[2017-12-18] MEDS: METHYLPREDNISOLONE 40 MG INJ IV SCH ×2 (01:22→09:36)
[2017-12-18] MEDS: PIPER/TAZO/NS 3.375gm 3.375 GM/100 ML BAG IVPB SCH ×2 (01:23→09:36)
[2017-12-18 05:15] LABS: Hematocrit 37.5 % (36.0-45.0); MCH 25.6 pg (27.0-35.0); MCV 82.4 fL (80-100); MPV 8.7 fL (7.6-11.3); RBC Red Blood Cell Count 4.56 M/uL (3.86-4.86)
[2017-12-18 05:16] LABS: Absolute Lymphocytes (CBC) 0.4 K/uL (0.7-4.9); Absolute Monocytes 0.2 K/uL (0.1-1.3); Absolute Neutrophil 20.8 K/uL (1.8-8.0); Basophils % 0.2 % (0-1.3); Lymphocytes % 1.7 % (15.3-44.8); Monocytes % 1.1 % (3.3-12.3)
[2017-12-18] MEDS: PANTOPRAZOLE 40MG TABLET PO SCH (05:40)
[2017-12-18 05:45] VITALS: BMI 27.9
[2017-12-18 06:02] LABS: ALT/SGPT 14 IU/L (10-60); AST/SGOT 27 IU/L (10-42); Albumin 2.5 g/dL (3.2-5.5); Alkaline Phosphatase 78 IU/L (42-121); BUN Blood Urea Nitrogen 13 mg/dL (6-20); Bicarbonate 28 mEq/L (21-31); Bilirubin Total 0.7 mg/dL (0.3-1.2); Glomerular Filtration Rate > 90 mL/min (=/>90); Glucose Level 114 mg/dL (65-120); Potassium 3.9 mEq/L (3.6-5.0); Protein, Total 5.5 g/dL (6.0-8.3); Sodium Level 146 mEq/L (135-145)
[2017-12-18 07:01] LABS: Blood Morphology Comment NOT SEEN (NOT SEEN)
[2017-12-18 07:02] LABS: Platelet Estimate ADEQ
[2017-12-18] MEDS ORDERED: HOME MED 1 EA UNK (Esomeprazole Magnesium [Nexium] 40 MG) PO SCH (09:00)
[2017-12-18] MEDS: DULOXETINE 30 MG CAP PO SCH (09:36)
[2017-12-18] MEDS: ENOXAPARIN 40 MG/0.4 ML SQ SCH (09:36)
[2017-12-18] MEDS: FUROSEMIDE 40 MG TABLET PO SCH (09:36)
[2017-12-18] MEDS: ASPIRIN EC 81 MG TAB PO SCH (09:37)
[2017-12-18] MEDS: GABAPENTIN 400 MG CAP PO SCH ×3 (09:37→20:46)
[2017-12-18] MEDS: AMITRIPTYLINE 50 MG TAB PO SCH ×2 (09:38→20:46)
[2017-12-18] MEDS: HYDROCODONE/APAP 10/325 TAB PO PRN ×2 (10:07→15:53)
--- NOTE | 2017-12-18 11:13 | RAD REPORT ---
EXAM DESCRIPTION: RAD - Chest Single View - 12/18/2017 5:55 am CLINICAL HISTORY: Respiratory failure. COMPARISON: 12/17/2017 FINDINGS: Portable technique limits examination quality. Since the prior study the endotracheal tube and enteric tube have been removed. The lungs are mildly emphysematous. Atelectasis is likely present in the right lung base. The heart is mildly prominent si ze.
[2017-12-18] MEDS: Meropenem 500 MG in NA CHLORIDE 0.9% 100 ML IV SCH ×2 (11:24→20:46)
--- NOTE | 2017-12-18 11:43 | PN ---
Date of Progress Note: 12/18/2017 Subjective: The patient seen and examined, chart reviewed, and case discussed with RN. The patient was extubated yesterday and had to remain on BiPAP for most of the day, was taken off BiPAP early thi s morning and was doing well on nasal cannula. The patient does not recall the events leading up to her hospitalization. Review of Systems: Negative except as above. Medications: Reviewed. Physical Examination: Vital Signs: Temperature 97.7, heart rate 80, blood pressure 139/74, respirations 11, and O2 saturat ion 96% on 5 L via nasal cannula. General: Awake, alert, oriented x3, in some mild distress, ill-appearing elderly female. CV: S1, S2. No murmurs. Regular rate and rhythm. Peripheral pulses present. Respiratory: diminished breath sounds. No rhonchi or wheezing. No use of accessory muscles. Gastrointestinal: Abdomen is soft, nontender, nondistended. Positive bowel sounds. Extremities: No clubbing, cyanosis, edema. Neuro: Nonfocal. Laboratory Data: Sodium 146, potassium 3.9, chloride 107, CO2 28, BUN 13, creatinine 0.6, and calciu m 9. WBC 21.4, H and H 11.7, 37.5, platelets 225, neutrophils 97%, and 13% bands. Cultures, urine c ultures, growing ESBL E coli. Blood cultures show no growth to date. Sputum cultures pending. Ches t x-ray, no official report, however, shows some mild improvement. Assessment And Plan: A 77-year-old female with; 1.Acute hypercapnic respiratory failure, now extubated and off BiPAP. The patient currently on nasa l cannula 5 L secondary to pneumonia. We will continue supplemental oxygen as needed. ABG shows imp rovement as well as chest x-ray. 2.Aspiration pneumonia, right lower lobe consolidation. Continue IV antibiotics. Blood cultures ne gative to date. Sputum culture is pending. 3.Urinary tract infection, acute cystitis without hematuria. We will adjust IV antibiotics. We tawnya l switch to meropenem as cultures show extended-spectrum beta-lactamase producing Escherichia coli. 4.Chronic obstructive pulmonary disease with chronic respiratory failure. Continue nebulizer treatm ents. 5.Degenerative disk disease of spine. The patient is narcotic dependent. 6.History of laryngeal cancer. 7.Gastroesophageal reflux disease. PPI. 8.Chronic back pain, midline, without sciatica. Continue pain medications. 9.Hyperlipidemia, continue statin. 10.Gastrointestinal and deep venous thrombosis prophylaxis with PPI and Lovenox. 11.Steroid-induced leukocytosis. We will adjust steroid dose and frequency. We will step down from ICU if okay with Pulmonology. /MODL Voice ID: [id number] Report ID: [id number]
--- NOTE | 2017-12-18 12:59 | P.PN ---
Subjective Date of Service: 12/18/17 Chief Complaint: Respiratory failure Subjective: Improving (Patient is doing better she is alert responsive cooperative wants to go home hemodynamically stable transfer to the floor yesterday) Review of Systems General: Weakness Respiratory: Shortness of Breath Physical Examination - Vital Signs Temperature: 98.5 F Blood Pressure: 134/70 Pulse: 94 Respirations: 21 Pulse Ox (%): 93 - Physical Exam General: Alert, Oriented x3 HEENT: Atraumatic Respiratory: Expiratory wheezes Cardiovascular: No edema, Normal S1 S2 - Studies Microbiology Data (last 24 hrs): 12/16/17 12:21 Clean Catch Urine [place] Count - Final >100,000 CFU/ML. 12/16/17 12:21 Clean Catch Urine - Final Escherichia Coli Assessment & Plan - Problems (Diagnosis) (1) Respiratory failure Current Visit: Yes Status: Acute Plan: Patient was admitted with respiratory failure currently doing well no evidence of pneumonia on the chest x-ray urine culture did show very resistant E. coli currently on meropenem he does not recall the events that precipitated her admission white count is elevated may be side effect of steroids patient sat is 96% on 5 L he is on Lasix doing well ambulate Dc Butler catheter should probably need to be in the hospital for IV antibiotics for 4 or 5 days Qualifiers: Chronicity: acute on chronic
[2017-12-18] MEDS ORDERED: Meropenem 500 MG VIAL IV SCH (17:00)
[2017-12-18] MEDS: ATORVASTATIN 20 MG TAB PO SCH (20:46)
[2017-12-18] MEDS ORDERED: METHYLPREDNISOLONE 40 MG INJ IV SCH (21:00)
[2017-12-19] MEDS: HYDROCODONE/APAP 10/325 TAB PO PRN ×4 (00:18→22:55)
[2017-12-19] MEDS: IPRATROPIUM BROM 0.5MG/2.5ML NEB SCH ×4 (01:59→19:42)
[2017-12-19] MEDS: Meropenem 500 MG in NA CHLORIDE 0.9% 100 ML IV SCH ×3 (04:00→20:31)
[2017-12-19] MEDS ORDERED: NA CHLORIDE 0.9% 250 ML ONE (04:35)
[2017-12-19 05:47] LABS: Absolute Lymphocytes (CBC) 0.4 K/uL (0.7-4.9); Absolute Monocytes 0.9 K/uL (0.1-1.3); Absolute Neutrophil 14.6 K/uL (1.8-8.0); Basophils % 0.1 % (0-1.3); Eosinophils % 0.2 % (0-4.4); Hematocrit 36.7 % (36.0-45.0); Lymphocytes % 2.2 % (15.3-44.8); MCH 25.4 pg (27.0-35.0); MCV 81.7 fL (80-100); MPV 8.7 fL (7.6-11.3); Monocytes % 5.6 % (3.3-12.3); RBC Red Blood Cell Count 4.49 M/uL (3.86-4.86)
[2017-12-19] MEDS: PANTOPRAZOLE 40MG TABLET PO SCH (05:48)
[2017-12-19 06:16] LABS: ALT/SGPT 16 IU/L (10-60); AST/SGOT 19 IU/L (10-42); Albumin 2.4 g/dL (3.2-5.5); Alkaline Phosphatase 64 IU/L (42-121); BUN Blood Urea Nitrogen 17 mg/dL (6-20); Bicarbonate 28 mEq/L (21-31); Bilirubin Total 0.8 mg/dL (0.3-1.2); Glomerular Filtration Rate > 90 mL/min (=/>90); Glucose Level 95 mg/dL (65-120); Potassium 3.5 mEq/L (3.6-5.0); Protein, Total 5.2 g/dL (6.0-8.3); Sodium Level 142 mEq/L (135-145)
[2017-12-19] MEDS: DULOXETINE 30 MG CAP PO SCH (08:57)
[2017-12-19] MEDS: AMITRIPTYLINE 50 MG TAB PO SCH ×2 (08:57→20:31)
[2017-12-19] MEDS: FUROSEMIDE 40 MG TABLET PO SCH (08:57)
[2017-12-19] MEDS: ASPIRIN EC 81 MG TAB PO SCH (08:58)
[2017-12-19] MEDS: ENOXAPARIN 40 MG/0.4 ML SQ SCH (08:58)
[2017-12-19] MEDS: GABAPENTIN 400 MG CAP PO SCH ×3 (08:59→20:31)
[2017-12-19] MEDS ORDERED: POTASSIUM 25 MEQ EFFERV TAB PO ONE (09:00)
[2017-12-19 10:47] LABS: Arterial Blood Carboxyhemoglob 1.5 % (0-1.5); Blood Gas Oxyhemoglobin 80.9 % (94-97); Blood O2 Saturation 83.5 % (92-98.5)
--- NOTE | 2017-12-19 13:04 | EKG ---
Test Date: 2017-12-16 Test Time: 11:03:04 Exhibition Specialist: LIDA MEASUREMENT RESULTS: Intervals: Rate: 78 OK: 162 QRSD: 96 QT: 378 QTc: 430 [place]: P: 72 OK: 162 QRS: 55 T: 58 INTERPRETIVE STATEMENTS: Normal sinus rhythm Low voltage QRS Cannot rule out Anterior infarct, age undetermined Abnormal ECG Compared to ECG 11/20/2017 17:07:46 Low QRS voltage now present Atrial premature complex(es) no longer present Myocardial infarct finding still present Electronically Signed On 12-19-17 13:03:39 CDT by Fransisco Blackwell
--- NOTE | 2017-12-19 18:35 | PN ---
Date of Progress Note: 12/19/2017 Subjective: The patient seen and examined, chart reviewed and case discussed with RN and Dr. Raffy mitchell. The patient had hypoxia this morning; however without any major distress. Review of Systems: Negative except as above. Medications: Reviewed. Physical Examination: Vital signs: Temperature 97.1, heart rate 95, blood pressure 137/50, respirations 15, O2 91% on 5 L via nasal cannula. General: Awake, alert, oriented x3, in some mild respiratory distress. Elderly female, ill-appearin g. CV: S1 and S2. No murmurs. Regular rate and rhythm. Peripheral pulses present. Respiratory: Diminished breath sounds bilaterally. No wheezing. Abdomen: Soft, nontender, nondistended. Positive bowel sounds. No guarding or rigidity. Extremities: No clubbing, cyanosis, or edema. Neurologic: Nonfocal. Laboratory Data: Sodium 142, potassium 3.5, chloride 107, CO2 28, BUN 17, creatinine 0.58, glucose 9 5, calcium 8.8, albumin 2.4. ABG; pH 7.47, pCO2 39.7, PO2 50, bicarb 28.2. WBC 15.9, H and H 11.4 a nd 36.7, platelets 237. Urine culture shows Escherichia coli, ESBL producing. Assessment And Plan: A 77-year-old female with: 1.Acute hypercapnic hypoxic respiratory failure, still somewhat hypoxic on nasal cannula down to 79% , may need to be placed back on BiPAP. ABG does not show any acidosis or hypercapnia, but the patien t is hypoxic secondary to pneumonia. 2.Aspiration pneumonia right lower lobe. Blood cultures and sputum cultures were negative to date. 3.Urinary tract infection, acute cystitis without hematuria secondary to ESBL Escherichia coli. We will continue meropenem. The patient will need PICC line and IV meropenem for 2-4 weeks. We will di scuss with social work. 4.Chronic obstructive pulmonary disease with chronic respiratory failure. Continue nebulizer treatm ents. 5.Degenerative disease of spine, narcotic dependent. 6.History of laryngeal cancer. 7.Gastroesophageal reflux disease PPI. 8.Chronic back pain, midline, without sciatica. Continue pain medications. 9.Hyperlipidemia. Continue statin. 10.Steroid induced leukocytosis, improving. Steroid adjusted. 11.Gastrointestinal and deep venous thrombosis prophylaxis with PPI and Lovenox. SA/MODL Voice ID: [id number] Report ID: [id number]
[2017-12-19] MEDS: ATORVASTATIN 20 MG TAB PO SCH (20:31)
[2017-12-20] MEDS: IPRATROPIUM BROM 0.5MG/2.5ML NEB SCH ×4 (01:15→19:56)
[2017-12-20] MEDS: Meropenem 500 MG in NA CHLORIDE 0.9% 100 ML IV SCH ×3 (04:06→21:11)
[2017-12-20] MEDS: PANTOPRAZOLE 40MG TABLET PO SCH (05:46)
[2017-12-20 06:04] LABS: Potassium 3.6 mEq/L (3.6-5.0)
[2017-12-20 06:29] LABS: Absolute Lymphocytes (CBC) 0.7 K/uL (0.7-4.9); Absolute Neutrophil 7.3 K/uL (1.8-8.0); Basophils % 0.4 % (0-1.3); Hematocrit 34.2 % (36.0-45.0); Lymphocytes % 7.5 % (15.3-44.8); MCH 25.7 pg (27.0-35.0); MCV 81.7 fL (80-100); MPV 8.7 fL (7.6-11.3); Monocytes % 9.8 % (3.3-12.3); RBC Red Blood Cell Count 4.19 M/uL (3.86-4.86)
[2017-12-20] MEDS ORDERED: POTASSIUM 25 MEQ EFFERV TAB PO ONE (09:00)
[2017-12-20] MEDS: DULOXETINE 30 MG CAP PO SCH (09:33)
[2017-12-20] MEDS: AMITRIPTYLINE 50 MG TAB PO SCH ×2 (09:33→21:11)
[2017-12-20] MEDS: FUROSEMIDE 40 MG TABLET PO SCH (09:33)
[2017-12-20] MEDS: ASPIRIN EC 81 MG TAB PO SCH (09:33)
[2017-12-20] MEDS: ENOXAPARIN 40 MG/0.4 ML SQ SCH (09:34)
[2017-12-20] MEDS: GABAPENTIN 400 MG CAP PO SCH ×3 (09:34→21:11)
[2017-12-20] MEDS: HYDROCODONE/APAP 10/325 TAB PO PRN (11:55)
--- NOTE | 2017-12-20 14:18 | PN ---
Subjective: The patient is seen and examined. Chart reviewed and case discussed with RN. The patie nt continues to require BiPAP. No cough or chest pain. No fevers overnight. The patient is tolerat ing her diet. Review of Systems: Negative except as above. Medications: Reviewed. Physical Examination: Vital Signs: Temperature 97.9, heart rate 84, blood pressure 137/65, respirations 16, O2 88% on BiPA P. General: Awake, alert, and oriented x3. Elderly female, acute respiratory distress. CV: S1, S2. No murmurs. Peripheral pulses present. Regular rate and rhythm. Respiratory: Diminished breath sounds. No wheezing or stridor. Gastrointestinal: Abdomen is soft, nontender, nondistended. Positive bowel sounds. No guarding or rigidity. Extremities: No clubbing, cyanosis, or edema. Neuro: Nonfocal. Laboratory Data: Sodium 140, potassium 3.6, chloride 105, CO2 31, BUN 20, creatinine 0.78, glucose 1 04, calcium 8.1. WBC 9.7, H and H 10.7 and 34.2, platelets 221, neutrophils 75%. Urine culture grow ing out ESBL E. coli. Blood cultures, no growth to date. Assessment And Plan: A 77-year-old female with: 1.Acute hypercapnic hypoxic respiratory failure. Continues to need BiPAP secondary to aspiration pn eumonia and COPD. We will continue titrate to 88% to 91%. Pulmonology indicates. 2.Aspiration pneumonia, right lower lobe. Blood cultures negative to date. Continue IV antibiotics . 3.Urinary tract infection, acute cystitis without hematuria secondary to extended-spectrum beta-lact amase-producing Escherichia coli. Continue meropenem. PICC line has been ordered. The patient will need meropenem for a minimum of 2 weeks. 4.Chronic obstructive pulmonary disease with chronic respiratory failure. Continue steroids and neb ulizer treatments. 5.Degenerative disk disease of spine, dependent on narcotics. 6.History of laryngeal cancer. 7.Gastroesophageal reflux disease. Continue PPI. 8.Chronic back pain, midline without sciatica, stable. 9.Hyperlipidemia. 10.Continue statin. 11.Gastrointestinal and deep venous thrombosis prophylaxis with PPI and Lovenox. Plan: Wean off oxygen as tolerated. /MODMyron Voice ID: [id number] Report ID: [id number]
[2017-12-20 19:06] LABS: Arterial Blood Carboxyhemoglob 1.1 % (0-1.5); Blood O2 Saturation 76.1 % (92-98.5)
[2017-12-20] MEDS: ATORVASTATIN 20 MG TAB PO SCH (21:12)
[2017-12-21 02:20] VITALS: O2SAT 90
[2017-12-21] MEDS: IPRATROPIUM BROM 0.5MG/2.5ML NEB SCH ×3 (02:20→14:31)
[2017-12-21] MEDS: PANTOPRAZOLE 40MG TABLET PO SCH (05:37)
[2017-12-21] MEDS: Meropenem 500 MG in NA CHLORIDE 0.9% 100 ML IV SCH ×2 (05:37→11:48)
[2017-12-21 06:39] LABS: Magnesium 1.8 mg/dL (1.8-2.5); Potassium 3.4 mEq/L (3.6-5.0)
[2017-12-21] MEDS ORDERED: MAGNESIUM SULFATE 1 gm IVPB 1 GM/100 ML BAG IV ONE (06:49)
[2017-12-21] MEDS ORDERED: POTASSIUM 25 MEQ EFFERV TAB PO ONE (06:52)
[2017-12-21] MEDS ORDERED: KCL 20 MEQ/100 mL IVPB 20 MEQ/100 ML BAG IV SCH (07:00)
[2017-12-21] MEDS ORDERED: NA CHLORIDE 0.9% 100 ML ONE (08:06)
[2017-12-21] MEDS ORDERED: POTASSIUM 25 MEQ EFFERV TAB ONE (08:22)
[2017-12-21] MEDS: AMITRIPTYLINE 50 MG TAB PO SCH (09:00)
[2017-12-21] MEDS: GABAPENTIN 400 MG CAP PO SCH (09:49)
[2017-12-21] MEDS: DULOXETINE 30 MG CAP PO SCH (09:49)
[2017-12-21] MEDS: ASPIRIN EC 81 MG TAB PO SCH (09:49)
[2017-12-21] MEDS: FUROSEMIDE 40 MG TABLET PO SCH (09:49)
[2017-12-21] MEDS: ENOXAPARIN 40 MG/0.4 ML SQ SCH (09:50)
[2017-12-21] MEDS: HYDROCODONE/APAP 10/325 TAB PO PRN (09:54)
--- NOTE | 2017-12-21 10:13 | RAD REPORT ---
EXAM DESCRIPTION: RAD - Chest Single View - 12/21/2017 6:19 am CLINICAL HISTORY: Device placement PICC line placement COMPARISON: November 2017 FINDINGS: A PICC line has been inserted. The tip overlies the trachea presumably within the junctio n of the brachiocephalic vein/ superior vena cava Right basilar opacities are without obvious change. The right hemidiaphragm remains elevated. Mild le ft basilar opacity may represent atelectasis or infiltrate
[2017-12-21 10:37] VITALS: BP 105/55; TEMP 97.2
--- NOTE | 2017-12-21 11:10 | RAD REPORT ---
EXAM DESCRIPTION: CT - Chest For Pe Angio - 12/21/2017 9:07 am CLINICAL HISTORY: Chest pain, shortness of breath COMPARISON: Chest films December 21 and December 18 ; CT chest December 16 ; CT chest imaging October 2014 TECHNIQUE: Dynamically enhanced 3 mm thick images of the chest were obtained during administration o f approximately 150mL Isovue 370 IV contrast. Coronal and oblique reconstruction images were generate d and reviewed. Exam utilizes a protocol to evaluate the pulmonary arterial tree. All CT scans are performed using dose optimization technique as appropriate and may include automated exposure control or mA/KV adjustment according to patient size. FINDINGS: No pulmonary emboli are identified. No aortic aneurysm or acute aortic finding identifiable. Aortic atherosclerotic calcifications are pr esent. Patient has coronary artery calcifications as well. No pericardial thickening or effusion. Bilateral lower lobe atelectasis changes are present. Minimal infiltrates could be masked within the collapsed lung parenchyma. Patient has underlying COPD. Right lung field parenchyma overall is better aerated than on the December 16 CT study. Minimal pleural fluid is present. No pneumothorax. No mediastinal or hilar suspicious masses. No chest wall mass. Patient has axillary lymph nodes on the left largest measuring 2.4 x 1.1 cm. Left-side retropectoral lymphadenopathy is present as well and there arm numerous left-sided base of the neck and supraclavic ular lymph nodes. Most are small under 1 centimeter. Largest supraclavicular lymph node is 2.2 cm in long axis. Review of imaging back to October 2014 shows this lymph node pattern to be present. IMPRESSION: No pulmonary emboli or acute pulmonary artery finding. No acute aortic finding. Multiple left axillary, left retropectoral and left base the neck and supraclavicular lymph nodes. Al though these are suspicious in this distribution, the pattern is similar or perhaps even slightly les s pronounced than seen on prior studies dating back to 2014. Bilateral lobe atelectasis. No suspicious mass the lung parenchyma. Minimal infiltrates are potential ly masked in the bilateral lower lobe partial atelectasis. Trace amounts of bilateral pleural fluid.
[2017-12-21] MEDS ORDERED: POLYETHYL GLY 3350 17 GM/DOSE PO PRN (12:00)
--- NOTE | 2017-12-21 12:03 | P.PN ---
Subjective Date of Service: 12/21/17 Chief Complaint: Respiratory failure Subjective: Improving (Patient is doing better today she is alert and responsive CT angiogram no evidence of thromboembolism atelectasis or pneumonia) Review of Systems General: Weakness Respiratory: Shortness of Breath Physical Examination - Vital Signs Temperature: 97.2 F Blood Pressure: 105/55 Pulse: 81 Respirations: 16 Pulse Ox (%): 87 - Physical Exam General: Alert, In no apparent distress Neck: Supple Respiratory: Clear to auscultation bilaterally, Diminished Assessment & Plan - Problems (Diagnosis) (1) Respiratory failure Current Visit: Yes Status: Acute Plan: Patient admitted with respiratory failure today she is doing better as satisfactory a day at the 3-4 L of nasal cannula oxygen no evidence of thromboembolism she is stable mediastinal adenopathy patient has ESBL in the urine is on IV meropenem this was started on December 18 Qualifiers: Chronicity: acute on chronic (2) ESBL (extended spectrum beta-lactamase) producing bacteria infection Current Visit: Yes Status: Acute Plan: Patient has ESBL in the urine duration of treatment is 2-3 weeks patient will need a PICC line
[2017-12-21] MEDS ORDERED: DOCUSATE NA 100 MG CAP PO SCH (21:00)
--- NOTE | 2017-12-22 04:55 | DS ---
Date of Discharge: 12/21/2017 Consultants: Dr. Carrneo. Admitting Diagnoses: 1.Acute respiratory failure, hypercapnic. 2.Aspiration pneumonia, right-sided. 3.Chronic obstructive pulmonary disease with chronic respiratory failure. 4.Degenerative disk disease of the spine. 5.History of laryngeal cancer. 6.Gastroesophageal reflux disease. 7.Chronic back pain, midline, without sciatica. 8.Hyperlipidemia. Discharge Diagnoses: 1.Acute on chronic respiratory failure with hypercapnic hypoxic respiratory failure, improved with B iPAP. 2.Aspiration pneumonia right lower lobe. 3.Urinary tract infection, acute cystitis without hematuria secondary to Extended spectrum beta-lact amases Escherichia coli. 4.Chronic obstructive pulmonary disease with chronic respiratory failure. 5.Degenerative disk disease of the spine, narcotic dependent. 6.History of laryngeal cancer. 7.Gastroesophageal reflux disease, PPI. 8.Chronic back pain, midline without sciatica. 9.Hyperlipidemia. Hospital Course: The patient is a 77-year-old female, who was found down and was brought into the [facility] with acute hypercapnic respiratory failure. The patient was intubated and on imaging was foun d to have right lower lobe pneumonia. CT scan head was done which was negative. The patient was sta rted on IV antibiotics, was placed in the ICU. Blood cultures were obtained which were negative to d ate. The patient also had urine cultures done which showed ESBL producing E. coli, which was treated with meropenem. The patient will need 2 weeks of IV meropenem. PICC line was attempted, but not ab le to be inserted. The patient did have femoral line and home health agency able to take care of paul tral line and therefore the patient will receive IV antibiotics through that. The patient also had C T angio chest done to rule out PE as she remained hypoxic, it showed no PE, did show some multiple le ft axillary, left retropectoral, and left base of the neck and supraclavicular lymph nodes. Pattern similar and even slightly less pronounced than studies from 2015. The patient's oxygenation improved . The patient was doing well. The patient was then set up with IV antibiotics and was cleared for d ischarge from Pulmonary standpoint. The patient was then discharged home with home health in a fair condition. Activity: No strenuous activity. Diet: Heart healthy. Followup: Follow up with primary care physician in 2-3 days. Follow up with cigarette making machine operator, Dr. Anurag tam in 2 weeks. Return to ER for worsening condition. Medications: As per medication reconciliation list. Total time spent discharging patient was 38 minutes. Physical Examination: General: Awake, alert, oriented, in no acute distress. Elderly female. CV: S1, S2. No murmurs. Respiratory: Moving air well bilaterally. Some diminished breath sounds at the bases. Gastrointestinal: Abdomen is soft, nontender, nondistended. Positive bowel sounds. Extremities: No clubbing, cyanosis, edema. Neuro: Nonfocal. SA/MODL Voice ID: [id number] Report ID: [id number]
== END 2017-12-21 15:11 | disposition home health service (06) | DRG 208 ==
LOC: ER 11:00 → ERHOLD 13:37 → 3RD-ICU 14:03 → 2ND 12-18 11:30
PROVIDERS: ADMIT Family Medicine; ATTEND Family Medicine
PROC: 0BH18EZ Insertion of Endotracheal Airway into Trachea, Via Natural or Artificial Opening Endoscopic (ICD-10-PCS; principal; 2017-12-16)
PROC: 5A1945Z Respiratory Ventilation, 24-96 Consecutive Hours (ICD-10-PCS; 2017-12-16)
PROC: 5A09457 Assistance with Respiratory Ventilation, 24-96 Consecutive Hours, Continuous Positive Airway Pressure (ICD-10-PCS; 2017-12-17)
DX: J69.0 Pneumonitis due to inhalation of food and vomit (principal); J96.20 Acute and chronic respiratory failure, unspecified whether with hypoxia or hypercapnia; J96.22 Acute and chronic respiratory failure with hypercapnia; N30.00 Acute cystitis without hematuria; B96.20 Unspecified Escherichia coli [E. coli] as the cause of diseases classified elsewhere; Z16.12 Extended spectrum beta lactamase (ESBL) resistance; J44.9 Chronic obstructive pulmonary disease, unspecified; K21.9 Gastro-esophageal reflux disease without esophagitis; M51.9 Unspecified thoracic, thoracolumbar and lumbosacral intervertebral disc disorder; E78.5 Hyperlipidemia, unspecified; Z85.21 Personal history of malignant neoplasm of larynx; Z79.891 Long term (current) use of opiate analgesic; D72.828 Other elevated white blood cell count; T38.0X5A Adverse effect of glucocorticoids and synthetic analogues, initial encounter; Y92.230 Patient room in hospital as the place of occurrence of the external cause
CPT/HCPCS: 36415; 70450; 71045; 71250; 71275; 80048; 80053; 80076; 80307; 81003; 81015; 82550; 82805; 82962; 83605; 83690; 83735; 83880; 84132; 84145; 84484; 85025; 85610; 85730; 87040; 87077; 87086; 87088; 87186; 93005; 94002; 94003; 94640; 94660; 94760; 99291; 99292; J1650; J2250; J2543; J2920; J2930; J3010; J3370; J3475; J7030; Q9967